=== PATIENT | female | born 1990 | race Caucasian/White ===

== ENCOUNTER 2016-07-15 21:26 | Outpatient (CLI) | payer OTHER, SELFPAY ==
[~2016-07-15] VITALS: Ht 170.2 cm; Wt 101.0 kg
[2016-07-15 21:42] VITALS: BP 124/73
== END 2016-07-15 22:15 | disposition home or self-care (01) ==
LOC: M LDO 21:26
PROVIDERS: ATTEND Obstetrics & Gynecology
DX: O47.1 False labor at or after 37 completed weeks of gestation (principal); O99.89 Other specified diseases and conditions complicating pregnancy, childbirth and the puerperium; R51 Headache; R05 Cough; R09.81 Nasal congestion; Z3A.39 39 weeks gestation of pregnancy

== ENCOUNTER 2016-07-27 05:35 | Inpatient (IN) | payer OTHER ==
[~2016-07-27] VITALS: Ht 170.2 cm; Wt 105.0 kg
[2016-07-27] VITALS (20 sets, daily range): BP systolic 116–142; BP diastolic 56–82
[2016-07-27 06:14] LABS: MEAN CORPUSCULAR HEMOGLOBIN 23.8 pg (27.0-33.0); MEAN CORPUSCULAR HGB CONC 30.9 g/dl (32.0-36.5); RED CELL DISTRIBUTION WIDTH 16.5 % (11.5-14.5); WHITE BLOOD COUNT 25.5 K/mm3 (4.0-10.0)
[2016-07-27] MEDS ORDERED: FENTANYL 2MCG/ML ROPIVACAINE 0.2% NACL 250 ML CADD As Ordered ONE (06:24)
[2016-07-27] MEDS ORDERED: LR 1,000 ML IV SCH (06:25)
[2016-07-27] MEDS ORDERED: LACTATED RINGER'S 1000 ML IV ONE (06:30)
[2016-07-27] MEDS ORDERED: LACTATED RINGER'S 1000 ML IV PRN (07:30)
[2016-07-27] MEDS ORDERED: EPIDURAL/PCA KEYS XX PRN (07:30)
[2016-07-27] MEDS ORDERED: ePHEDrine SULFATE 25 MG/5 ML(5MG/ML) SYRINGE IV PRN (07:30)
[2016-07-27] MEDS ORDERED: diphenhydrAMINE INJ 50MG/ML VIAL (J1200) IV PRN (07:30)
[2016-07-27] MEDS ORDERED: EPIDURAL COMMENT XX SCH (07:30)
[2016-07-27] MEDS ORDERED: NALOXONE INJ 0.4 MG/1 ML VIAL (J2310) IV PRN (07:30)
[2016-07-27] MEDS ORDERED: ONDANSETRON 4MG/2ML VIAL (J2405) IV PRN (07:30)
[2016-07-27] MEDS ORDERED: REFRIGERATOR IV KEYS XX PRN (07:30)
[2016-07-27] MEDS ORDERED: FENTANYL/ROPIVACAINE/NACL CADD 250 ML EPIDURAL SCH (07:30)
[2016-07-27] MEDS: PRENATAL VITAMIN TAB PO SCH (09:00)
[2016-07-27] MEDS ORDERED: OXYTOCIN 30 UNITS IN 0.9% NaCl 500ML IV BAG (J2590) As Ordered ONE (09:08)
[2016-07-27] MEDS ORDERED: OXYTOCIN DRIP 30 UNITS in APPROPRIATE DILUENT 1 EA IV SCH (09:37)
[2016-07-27] MEDS ORDERED: ACETAMINOPHEN 500 MG TAB PO PRN (09:45)
[2016-07-27] MEDS ORDERED: MEASLES,MUMPS,RUBELLA VACCINE INJ (MMR-II) (90707) SC SCH (09:45)
[2016-07-27] MEDS ORDERED: IBUPROFEN 800 MG TAB PO PRN (09:45)
[2016-07-27] MEDS ORDERED: DIBUCAINE 1% OINTMENT 30GM TOP PRN (09:45)
[2016-07-27] MEDS ORDERED: DOCUSATE SODIUM 100 MG CAP PO PRN (09:45)
[2016-07-27] MEDS ORDERED: RHOGAM 300 MCG (1500 IU) INJ (J2790) IM SCH (09:45)
--- NOTE | 2016-07-27 10:33 | HPE ---
DATE OF ADMISSION: 07/27/2016 This lady is a 25-year-old 2, para 1, LMP 10/15/2015, EDC 07/21/2016 at 40 weeks of gestation with history of spontaneous rupture of membranes clear liquor in active labor, 4 cm dilated. PAST HISTORY: 2013 at 40 weeks spontaneous vaginal delivery female 8 pounds 11 ounces. LABS: Show A+, HIV negative, HEP negative, RPR negative, rubella equivocal varicella immune. Pap normal. Urine negative. Gonorrhea and chlamydia negative. Initial 1-hour glucose 108 28-week 1-hour glucose 116. GBS negative. PHYSICAL EXAMINATION: On examination, distressed female. Symphysis fundus height appropriate 4-5 cm clear liquor, vertex well applied. OA position and -2 station. The hemoglobin was 10.8, hematocrit 35.1, platelets and are normal and her white count is 25.5. The patient comes in with a history of having upper respiratory and flu-like symptoms which she received while at home. Blood pressure with contractions 156/93, respirations are 18, pulse is 84, temperature not recorded. On the rest of the examination we have a category one strip. She is normocephalic, atraumatic. NECK: Full range of motion. Pupils equal and reactive to light. Distal pulses are symmetric. No evidence of DVT, PE or superficial phlebitis. LUNGS: Chest is clear bilaterally to bases. No wheezes or rhonchi. No CVA tenderness. Appropriate symphysis fundus height. ABDOMEN: Four quadrant bowel sounds are noted. SKIN: She has no rashes, lesions or pruritus. No arthralgia or myalgia. CHEST: No complaints of cough, wheezes, shortness of breath or dyspnea on exertion. No allergies. No palpitations. No chest pain not bleeding. NEURO complete. : No incontinency, frequency. No nausea, vomiting, diarrhea or constipation. No diabetic issues. She is a nonsmoker. No alcohol. No drug abuse. . There is no domestic violence. SUMMARY: in summary have a term gestation in active labor. We planning on hydration, epidural, anticipate spontaneous vaginal delivery. Regarding her elevated white count probably related to flu-like symptoms. Chest is clear and there is no evidence to suggest axillary lymphadenopathy. Anesthesia is available for epidural.
--- NOTE | 2016-07-27 11:03 | IPN ---
DATE OF SERVICE: 07/27/2016 This lady and requested circumcision of their male infant after discussing the risks and benefits of circumcision, the penile block, the aftercare. Both expressed understanding of penile block and aftercare, signed, and witnessed the consent form. We await the clearance by the air brush artist.
--- NOTE | 2016-07-27 19:42 | DNPDOC ---
Delivery Note Delivery Note DATE OF DELIVERY: Jul 27, 2016 at 0918 PREDELIVERY DIAGNOSIS: 40&6 weeks' gestation and labor/SROM POST DELIVERY DIAGNOSIS: Delivered. PROCEDURE: Spontaneous vaginal delivery CASE RESOLUTION SPECIALIST: Dr. Guerda Guzman MD ANESTHESIA: epidural ESTIMATED BLOOD LOSS: 150 mL. FINDINGS: 10 pound 2 ounce male infant, Score 7/9 DELIVERY SUMMARY: Celi is a 25yo G2 now P2002 who was admitted to L&D for SROM/labor. She had an uncomplicated of a viable male at 0918 on 27 Jul 2016 at 40w6d. Head delivered OA, restituted BRANDON. No nuchal cord. Right anterior shoulder delivered followed by posterior shoulder and corpus. Cord clamped x2 and cut by FOB. Infant mouth/nares bulb suctioned. Spontaneous cry noted. Baby placed on mother's abdomen. Apgars 7/9, weight 4528g or [id number]. No indication to obtain cord blood. With gentle downward guidance and suprapubic pressure, placenta delivered spontaneously and intact. Fundal massage until both uterine fundus and lower uterine segment firm; fundus at U-1. Pitocin 30 units IV bolus administered. Inspection of perineum and vaginal wall revealed superficial 1MLL closed with 4.0 vicryl suture with good hemostasis. Mom and infant in stable condition. GUERDA GUZMAN MD Jul 27, 2016 19:42
[2016-07-28 06:02] VITALS: BP 128/84
[2016-07-28] MEDS: PRENATAL VITAMIN TAB PO SCH (07:36)
--- NOTE | 2016-07-28 11:09 | IPNPDOC ---
Text Note Date of Service The patient was seen on 07/28/16 at 11:08. NOTE Celi is a 25yo doing well on PPD 1 s/p uncomplicated . She is . Lochia normal, spontaneously voiding and ambulating without difficulty. Tolerating regular diet. Denies f/c/n/v/SOB/CP/ROCK/abdominal pain. Vitals wnl, afebrile Exam: General: WDWN, NAD, resting comfortably Cardiac: S1S2 present, no murmur Lungs: CTAB without wheeze/crackles Abdomen: soft, NTTP, fundus firm u-2cm Extremities: no tenderness of calves bilaterally Assessment: Celi is a 25yo doing well on PPD 1 s/p uncomplicated . Meeting all milestones. No e/o infection, hemodynamically stable. Plan: -discharge to home with routine follow-up for 6wk PP visit -home meds already given from clinic stock -desires Nexplanon for contraception Dr. Gladis Guzman MD [facility] VS,Angel, I+O VS, Angel, I+O Vital Signs Date Time Temp Pulse Resp B/P Pulse Ox O2 Delivery O2 Flow Rate FiO2 07/28/16 06:02 97.0 90 19 128/84 98 Room Air I&O- Last 24 Hours up to 6 AM 07/28/16 06:00 Output Total 150 ml Balance -150 ml GLADIS GUZMAN MD Jul 28, 2016 11:09
[2016-07-28] MEDS ORDERED: PRENTAB9 PO (14:45)
[2016-07-28] MEDS ORDERED: ACET50TA PO (14:46)
[2016-07-28] MEDS ORDERED: COLA100C PO (14:47)
[2016-07-28] MEDS ORDERED: IBUP-1114 PO (14:47)
== END 2016-07-28 16:00 | disposition home or self-care (01) | DRG 775 ==
LOC: M LDI 05:35 → M OBS 12:50
PROVIDERS: ADMIT Obstetrics & Gynecology; ATTEND Obstetrics & Gynecology
PROC: 10E0XZZ Delivery of Products of Conception, External Approach (ICD-10-PCS; principal; 2016-07-27)
PROC: 0HQ9XZZ Repair Perineum Skin, External Approach (ICD-10-PCS; 2016-07-27)
DX: O48.0 Post-term pregnancy (principal); Z3A.40 40 weeks gestation of pregnancy; O70.0 First degree perineal laceration during delivery; Z37.0 Single live birth

== ENCOUNTER → 2025-06-12 | Outpatient (RCR) ==
[~2025-06-12] MED LIST: COLA100C5 PO; IBUP-1114 PO; MAPA500T2 PO; PRENTAB9 PO
== END ==
LOC: M EMPSSV 06-02 11:51
PROVIDERS: ATTEND Family Medicine
DX: Z20.828 Contact with and (suspected) exposure to other viral communicable diseases (principal)